=== PATIENT | male | born 1960 | race Two or more races ===

== ENCOUNTER → 2016-07-28 | Outpatient (CLI) | payer OTHER ==
[~2016-07-28] MED LIST: ALBUTEROL2.5 MG/3 M; AMITRIPTYLINE H50 MG PO; AMLODIPINE BESYL5 MG PO; ASPIRIN EC81 M1 PO; FLOMAX0.4 M1 PO; FLOVENT DISKUS50 MCG; HYDROCHLOROTH12.5 M1 PO; LIPITOR40 MG PO; PROAIR HFA8.5 GM IH; SINGULAIR PO; SYMBICORT INH; VITAMIN D1000 UNIT PO
--- NOTE | ~2016-07-28 | EKG ---
PATIENT: LISA GATES UNIT #: [id number] Ventricular Rate: 79 BPM Atrial Rate: 79 BPM P-R Interval: 180 ms QRS Duration: 100 ms Q-T Interval: 370 ms QTC Calculation(Bezet): 424 ms P [place]: 15 degrees Calculated R [place]: 25 degrees Calculated T [place]: 46 degrees Diagnosis Line: Sinus rhythm with Premature ventricular complexes Diagnosis Line: Otherwise normal ECG Diagnosis Line: No previous ECGs available Diagnosis Line: Confirmed by KHADRA CALHOUN MD ([id number]) on 07/31/2016 Diagnosis Line: 7:21:47 AM INTERPRETING MD: UNIQUE BRASHER
[2016-07-28 12:39] LABS: MEAN CELL VOLUME 83.3 FL (83-96); MEAN CORPUSCULAR HGB CONC 32.4 g/dL (30-36); MEAN PLATELET VOLUME 8.6 FL (6.5-11.5); RED BLOOD COUNT 5.17 X10e (3.90-5.60); RED CELL DISTRIBUTION WIDTH 13.9 % (11.0-15.5); WHITE BLOOD COUNT 6.7 X10e3 (4.0-10.5)
[2016-07-28 13:06] LABS: BLOOD UREA NITROGEN 16 mg/dL (9-23); BUN/CREATININE RATIO 26.66; CALCIUM SERUM 9.5 mg/dL (8.4-10.2); CARBON DIOXIDE 31 mmol/L (22-31); CHLORIDE 101 mmol/L (100-111); CREATININE SERUM 0.6 mg/dL (0.6-1.4); GLOM FILT RATE Estimated ABOVE60 mL/min (>60); GLUCOSE FASTING 149 mg/dL (70-110); POTASSIUM 3.7 mmol/L (3.5-5.1); SODIUM 138 mmol/L (135-145)
== END | disposition home or self-care (01) ==
LOC: CAMB 11:00
PROVIDERS: Specialist
DX: Z01.818 Encounter for other preprocedural examination (principal)
CPT/HCPCS: 36415; 80048; 85027; 93005

== ENCOUNTER → 2016-08-01 | Day surgery (SDC) | payer OTHER ==
--- NOTE | ~2016-08-01 | OR ---
Unit #: [id number] #: [id number] Patient: LISA GATES [id number] [address] [place], [place] [address] [id number] O MR#: [id number] NAME: LISA GATES ROOM: Date of Procedure: 08/01/2016 Admission Date: 08/01/2016 Surgeon: Eyal Brown M.D. : 1960 Attending Physician: Eyal Brown M.D. Primary Care Physician: Ashvin Razo M.D. OPERATIVE REPORT PREOPERATIVE DIAGNOSIS Incarcerated umbilical hernia. POSTOPERATIVE DIAGNOSIS Incarcerated umbilical hernia. PROCEDURE PERFORMED Open repair with 6.4 cm Ventralex mesh. WORK ORDER DETAILER Trev Samuel M.D. ANESTHESIA General endotracheal anesthesia. ESTIMATED BLOOD LOSS Less than 10 mL. INDICATIONS FOR PROCEDURE The patient is a 56-year-old gentleman, who does strenuous activity for living. He presented to the office with an incarcerated and very tender umbilical hernia. There was no evidence of strangulation or obstruction. DESCRIPTION OF PROCEDURE The patient was admitted to [facility], positively identified, and transported to the operating room, and after induction of general endotracheal anesthesia, his abdominal wall hair was clipped, and he was prepped and draped in usual sterile fashion. A transverse incision below the umbilicus was performed. We then the hernia sac from the surrounding soft tissues in the umbilical skin. Hernia sac was elevated and opened at the level of the fascia and the incarcerated preperitoneal and omental fat were excised along with the hernia sac. After this was opened and excised, the fascial defect was identified and I palpated through it to ensure that there were no other adhesions or palpable defects. This was an isolated defect. A 6.4 cm Ventralex patch was placed in the peritoneal cavity, opened up and centered over the fascial defect. 0 Ethibond interrupted sutures were then used to secure the mesh and closed the fascia. After the fascia was closed, 0.5% Marcaine with epinephrine was infiltrated in the skin and soft tissue. An umbilicoplasty was performed and then the soft tissue was closed with 3-0 Vicryl interrupted suture and the skin was reapproximated with 4-0 Unit #: [id number] #: [id number] Patient: LISA GATES running subcuticular closure and Dermabond skin adhesive. Sponges and needle counts were correct x3. The patient tolerated the procedure well and was transported to recovery in stable condition. Findings and postoperative instructions have been discussed with the patient and his daughter prior to surgery. Dictated by... Curt Wick/lois TD: 08/02/2016 00:07 JOB #: [id number] OPERATIVE REPORT Page 1 of 1 X Eyal Brown MD PROCEDURE OPERATIVE NOTE
== END | disposition home or self-care (01) ==
LOC: CSUR 06:14
DX: K42.0 Umbilical hernia with obstruction, without gangrene (principal); I10 Essential (primary) hypertension; J45.909 Unspecified asthma, uncomplicated; E78.00 Pure hypercholesterolemia, unspecified; N40.0 Benign prostatic hyperplasia without lower urinary tract symptoms; M19.90 Unspecified osteoarthritis, unspecified site; Z96.652 Presence of left artificial knee joint; M06.842 Other specified rheumatoid arthritis, left hand; M06.841 Other specified rheumatoid arthritis, right hand
CPT/HCPCS: J0131; J0690; J1885; J2250; J2405; J3010

== ENCOUNTER → 2016-10-06 | Day surgery (SDC) | payer OTHER ==
--- NOTE | ~2016-10-06 | OR ---
Unit #: [id number] #: [id number] Patient: LISA GATES [id number] [address] [place], [place] [address] [id number] O MR#: [id number] NAME: LISA GATES ROOM: Date of Procedure: 10/06/2016 Admission Date: 10/06/2016 Surgeon: Hipolito Terrazas M.D. : 1960 Attending Physician: Hipolito Terrazas M.D. Primary Care Physician: Eric Padilla M.D. OPERATIVE REPORT PREOPERATIVE DIAGNOSIS The patient has come for surveillance colonoscopy. He has personal history of colon polyps. PROCEDURES PERFORMED 1. Colonoscopy and polypectomy. 2. Colonoscopy and biopsy. POSTOPERATIVE DIAGNOSES 1. There were 2 sessile polyps in the transverse colon. Both were removed using cold biopsy forceps. A third polyp was in the proximal descending colon removed using snare polypectomy. All the polyps were retrieved and sent for histology. 2. [id number] sigmoid and descending colon diverticulosis. 3. Small internal hemorrhoids. 4. Rest of the examination up to cecum was normal. The quality of the prep was good. RECOMMENDATIONS Follow up results of polyp histology. Consider repeat colonoscopy in 5 years. SEDATION USED MAC. DESCRIPTION OF PROCEDURE Following detailed explanation of potential risks and complications of a colonoscopy, namely perforation, bleeding, and complications related to sedation, the patient was brought to GI lab and laid in the left lateral decubitus position. A digital rectal examination was performed, which was normal. Lubricated tip of the Olympus videocolonoscope was inserted through the anus and advanced under direct vision. The scope was advanced and passed up to sigmoid into descending colon. Multiple medium-sized diverticula were noted in this area. The scope was then navigated all the way up to cecum with visualization of the ileocecal valve and the appendiceal orifice. Two sessile polyps noted in the transverse colon along the way and both were removed using a cold biopsy forceps. They were both diminutive. Quality of the prep was excellent with good visualization and photodocumentation was obtained. Successive segments of the colonic lumen were examined upon withdrawal and an additional third polyp was found in the proximal descending colon. This was about 7 mm in size and was removed using snare polypectomy. The polyp was retrieved and Unit #: [id number] #: [id number] Patient: LISA GATES sent for histology. No additional polyps noted. Other than the left-sided diverticula, the patient was also noted to have small internal hemorrhoids at anal verge. The scope was then withdrawn. The patient returned to the recovery area. He tolerated the procedure without any postprocedure complications. Dictated by... Curt Campos/lois TD: 10/06/2016 09:56 JOB #: [id number] OPERATIVE REPORT Page 1 of 1 X Hipolito Terrazas MD X PROCEDURE OPERATIVE NOTE
== END | disposition home or self-care (01) ==
LOC: COPS 05:45
DX: Z12.11 Encounter for screening for malignant neoplasm of colon (principal); D12.3 Benign neoplasm of transverse colon; D12.4 Benign neoplasm of descending colon; K57.30 Diverticulosis of large intestine without perforation or abscess without bleeding; K64.8 Other hemorrhoids; J45.909 Unspecified asthma, uncomplicated; N40.0 Benign prostatic hyperplasia without lower urinary tract symptoms; F17.210 Nicotine dependence, cigarettes, uncomplicated; F32.9 Major depressive disorder, single episode, unspecified; Z79.82 Long term (current) use of aspirin; Z79.899 Other long term (current) drug therapy; Z96.652 Presence of left artificial knee joint; Z98.890 Other specified postprocedural states
CPT/HCPCS: 88305; J2250